=== PATIENT | female | born 1955 | race African-American/Black ===

== ENCOUNTER 2017-06-09 19:06 | Emergency (ER) | payer MEDICAID ==
[~2017-06-09] VITALS: Ht 162.6 cm; Wt 62.0 kg
[2017-06-09] MEDS ORDERED: SODIUM CHLORIDE 0.9% 1,000 ML IV SCH (19:26)
[2017-06-09] MEDS ORDERED: FAMOTIDINE 20MG/2ML VIAL IV ONE (19:30)
[2017-06-09] MEDS ORDERED: METHYLPREDNISOLONE SOD SUCC 125 MG/2 ML VIAL IV ONE (19:30)
[2017-06-09] MEDS ORDERED: DIPHENHYDRAMINE 50MG/ML VIAL IV ONE (19:30)
[2017-06-09] MEDS ORDERED: ALBUTEROL (0.083%) 2.5MG/3ML NEB HHN ONE (19:30)
[2017-06-09] MEDS ORDERED: EPINEPHRINE 1:1000 1 MG/ML AMP IM ONE (19:30)
[2017-06-09 19:57] LABS: BASOPHILS % 0.6 % (0.0-2.0); EOSINOPHILS % 0.8 % (0.0-5.0); HEMATOCRIT. 36.7 % (36.0-48.0); HEMOGLOBIN. 12.6 g/dL (12.0-16.0); LYMPHOCYTES % 27.7 % (20.0-50.0); MEAN CORPUSCULAR HEMOGLOBIN 27.4 pg (28.0-32.0); MEAN CORPUSCULAR VOLUME 79.5 fL (81.0-99.0); MEAN PLATELET VOLUME 7.5 fl (7.4-10.4); NEUTROPHILS % 66.9 % (40.0-76.0); PLATELET 208 x1000/uL (130-400); RED BLOOD CELL COUNT 4.62 mill/uL (4.2-5.4); RED CELL DISTRIBUTION WIDTH 15.2 % (11.6-14.6)
[2017-06-09 20:04] LABS: CHLORIDE 99 mEq/L (98-107)
[2017-06-09 20:07] LABS: CARBON DIOXIDE 28 mEq/L (21-32)
[2017-06-09] MEDS ORDERED: PREDNISONE 20MG TABLET PO ONE (22:00)
[2017-06-09 22:37] VITALS: BP 149/93
== END 2017-06-09 22:49 | disposition home or self-care (01) ==
LOC: ER 20:30
DX: T39.015A Adverse effect of aspirin, initial encounter (principal); Y92.89 Other specified places as the place of occurrence of the external cause; T78.3XXA Angioneurotic edema, initial encounter; N28.9 Disorder of kidney and ureter, unspecified; I10 Essential (primary) hypertension; Z88.6 Allergy status to analgesic agent
CPT/HCPCS: 36415; 80053; 85025; 93005; 96361; 96372; 96374; 96375; 99285; J0171; J1200; J2930; J3490; J7030; J7512; J7611